=== PATIENT | male | born 1940 | race Caucasian/White ===

== ENCOUNTER 2019-10-28 06:05 | Day surgery (SDC) | payer OTHER ==
[~2019-10-28] VITALS: Ht 180.3 cm; Wt 79.4 kg
--- NOTE | ~2019-10-28 | O ---
[facility] [place] [address] OPERATIVE REPORT Name: JUAN CLAY Room #: 150-1 [facility]#: [id number] Admission: 10/28/19 Attend Phys: Jesus Holder MD Discharge: Date of : 44 Report #: [id number] THIS REPORT FOR: cc: ALAN PERES Physician not on staff Jesus Holder MD ~ CC: ALAN Salinas III, MD Physician staff Jesus Holder DATE OF SERVICE: 10/28/2019 PREOPERATIVE DIAGNOSIS: Basal cell carcinoma of the right lower lid. POSTOPERATIVE DIAGNOSIS: Basal cell carcinoma of the right lower lid. PROCEDURE: Second stage Pierre reconstruction, right lower lid. SURGEON: Jesus Holder MD. GREENSKEEPER LABORER: None. ANESTHESIA: General. COMPLICATIONS: None. INDICATIONS FOR SURGERY: This pleasant 79-year-old gentleman has previously undergone resection of a basal cell carcinoma in his right lower lid with a Pierre type vascularized tarsoconjunctival flap from his right upper lid into his right lower lid. He presents today for a second stage Pierre reconstruction in order to open up his palpebral aperture. Informed consent was obtained to include but not limited to the potential risk for loss of vision, bleeding, infection, failure to improve the problem, the potential need for further surgery or treatment. DESCRIPTION OF PROCEDURE: The patient was taken to the operating room where general anesthesia was administered. The right upper and right lower lids were then anesthetized transcutaneously and transconjunctivally with 2% Xylocaine mixed with equal parts of 0.75% Marcaine with Wydase. The patient was subsequently prepped and draped in the usual sterile fashion. A groove director was then passed behind the pedicle from the upper lid into the lower lid. It was then with a high-temp cautery. The right lower lid was then everted and the tarsoconjunctival margin was [facility] [address] [place] [address] OPERATIVE REPORT Name: JUAN CLAY Room #: 150-1 [facility]#: [id number] Admission: 10/28/19 Attend Phys: Jesus Holder MD Discharge: Date of : 44 Report #: [id number] smoothed with a Sejal scissor allowing the conjunctiva to roll over the eyelid margin. The right upper lid was then everted and the donor pedicle was amputated back around its base on the conjunctival surface across the width of the lid. Mild high temp cautery was then used to anesthetize several small bleeders. The wound was then cleaned and dressed with erythromycin ophthalmic ointment and the patient subsequently transported to the recovery area having tolerated the procedure well with no anesthetic or operative complications being noted. By: [id number] Jesus Holder MD /nt
[~2019-10-28 06:05] MED LIST: ASA81BEC PO
[2019-10-28 07:07] VITALS: BP 152/81
== END 2019-10-28 08:30 | disposition home or self-care (01) ==
LOC: OR 06:05 → TBA 06:09 → OR 07:11
DX: C44.1122 Basal cell carcinoma of skin of right lower eyelid, including canthus (principal); I10 Essential (primary) hypertension; I25.2 Old myocardial infarction; Z98.890 Other specified postprocedural states; Z79.899 Other long term (current) drug therapy; Z79.82 Long term (current) use of aspirin
CPT/HCPCS: 50010; 50101; 50386; 50398; 51636; 62110; 62900; 70005

== ENCOUNTER → 2020-11-13 | Day surgery (SDC) | payer OTHER ==
[~2020-11-13] VITALS: Ht 180.3 cm; Wt 77.6 kg
--- NOTE | ~2020-11-13 | O ---
[facility] [place] [address] OPERATIVE REPORT Name: JUAN CLAY Room #: [facility].#: [id number] Admission: 11/13/20 Attend Phys: Jesus Holder MD Discharge: Date of : 44 Report #: [id number] THIS REPORT FOR: cc: ALAN PERES MD Physician not on staff Jesus Holder MD ~ DOC #: [id number] cc: John Salinas III, MD, Jesus Holder MD DATE OF SERVICE: 11/13/2020 PLACER MINER: None. PREOPERATIVE DIAGNOSIS: Unilateral right lower lid ectropion. POSTOPERATIVE DIAGNOSIS: Unilateral right lower lid ectropion. OPERATION PERFORMED: Unilateral right lower lid ectropion repair. ANESTHESIA: Local with IV sedation. COMPLICATIONS: None. 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 The current procedure is undertaken in order to improve the patient's visual function, lacrimal outflow and level of comfort. Informed consent was obtained to include but not limited to the risk of loss of vision, bleeding, infection, scarring, failure to improve the problem and need for further surgery. DESCRIPTION OF OPERATION: The patient was taken to the operating room, where 2% Xylocaine with epinephrine mixed with equal parts of 0.75% Marcaine with Wydase was administered transcutaneously and transconjunctivally to the lower lid and lateral canthal area. The patient was then prepped and draped in the usual sterile fashion. A Ru clamp was then used to clamp the lateral canthus, following which a sharp canthotomy and cantholysis were performed. The tarsal strip was prepared laterally, removing the lash-bearing portion of the redundant lid margin and the redundant tarsal plate. Hemostasis was achieved with a monopolar cautery, as it was throughout the case. The tarsal strip was then secured to the internal portion of the lateral orbital tubercle with 2 interrupted 5-0 Prolene sutures. The lateral canthal angle was sharply reformed as the subcutaneous structures and the skin were closed with multiple interrupted 6-0 plain gut sutures. [facility] [address] [place] [address] OPERATIVE REPORT Name: OBEDJUAN Room #: [facility].#: [id number] Admission: 11/13/20 Attend Phys: Jesus Holder MD Discharge: Date of : 44 Report #: [id number] The wound was cleaned and dressed with ophthalmic antibiotic ointment. The patient was then transported to the recovery area, having tolerated the procedure well with no anesthetic or operative complications being noted. MD CLARITZA Pena/KAEL/MARSHALL By: [id number] Jesus Holder MD /nt
[2020-11-13 16:05] VITALS: BP 142/71
== END | disposition home or self-care (01) ==
LOC: OR 12:41
PROVIDERS: ATTEND Ophthalmology
DX: H02.102 Unspecified ectropion of right lower eyelid (principal); I25.2 Old myocardial infarction; Z85.828 Personal history of other malignant neoplasm of skin; Z98.890 Other specified postprocedural states; Z79.82 Long term (current) use of aspirin
CPT/HCPCS: 50010; 50101; 62110; 62850; 70005